=== PATIENT | female | born 1965 | race Caucasian/White ===

== ENCOUNTER → 2017-05-29 | Outpatient (CLI) | payer OTHER ==
[~2017-05-29] MED LIST: ACET325T14 PO; CHOL200024 PO; CIPR500T87 PO; GUAI-42 PO; MELO15TA24 PO; MULTIVITAMIN; NITROFURANTOIN; PHEN100T90 PO; POLY17PO5 PO
== END | disposition home or self-care (01) ==
LOC: MERGE 08:00 → STAR 08:05
PROVIDERS: ATTEND Podiatrist Foot & Ankle Surgery
DX: Z02.9 Encounter for administrative examinations, unspecified (principal)

== ENCOUNTER 2017-06-08 10:51 | Day surgery (SDC) | payer OTHER ==
[~2017-06-08] VITALS: Ht 172.7 cm; Wt 71.1 kg
[2017-06-08] MEDS ORDERED: LIDOCAINE 1%, 2ML ONE (11:29)
[2017-06-08 11:36] VITALS: BP 114/78
[2017-06-08] MEDS ORDERED: MIDAZOLAM 1 MG/ML, 2ML ONE (11:41)
[2017-06-08] MEDS ORDERED: FENTANYL PF 100 MCG/2ML ONE (11:41)
[2017-06-08] MEDS ORDERED: LACTATED RINGERS 1,000 ML IV SCH (12:00)
[2017-06-08] MEDS ORDERED: ONDANSETRON 2MG/ML, 2ML ONE (12:50)
[2017-06-08] MEDS ORDERED: SUCCINYLCHOLINE 20 MG/ML, 10ML ONE (12:50)
[2017-06-08] MEDS ORDERED: DEXAMETHASONE 4 MG/ML, 1ML ONE (12:50)
[2017-06-08] MEDS ORDERED: CEFAZOLIN 1,000 MG ONE (12:50)
[2017-06-08] MEDS ORDERED: PROPOFOL 10 MG/ML, 20ML ONE (12:50)
[2017-06-08] MEDS ORDERED: ROCURONIUM 10 MG/ML ONE (12:50)
[2017-06-08] MEDS ORDERED: LIDOCAINE/PF 1%, 30ML ONE (12:57)
[2017-06-08] MEDS ORDERED: BUPIVACAINE/PF 0.5% ONE (12:57)
[2017-06-08] MEDS ORDERED: TRIAMCINOLONE ACETONIDE 40 MG/ML, 1ML ONE (12:58)
[2017-06-08] MEDS ORDERED: EPINEPHRINE 1 MG/ML, 1ML INFIL ONE (13:24)
[2017-06-08] MEDS ORDERED: DEXAMETHASONE 4 MG/ML, 1ML IM ONE (13:26)
[2017-06-08] MEDS ORDERED: ONDANSETRON 2MG/ML, 2ML IVPush PRN (13:30)
[2017-06-08] MEDS ORDERED: HYDROmorphone 1 MG/ML, 1ML IV PRN (13:30)
[2017-06-08] MEDS ORDERED: LABETALOL 5MG/ML, 20ML IV PRN (13:30)
[2017-06-08] MEDS ORDERED: OXYcodone 5 MG/5 ML ORAL.SOL UDC PO PRN (13:30)
[2017-06-08] MEDS ORDERED: FENTANYL PF 100 MCG/2ML IV PRN (13:30)
[2017-06-08] MEDS ORDERED: ACETAMINOPHEN 325 MG TABLET PO PRN (13:30)
[2017-06-08] MEDS ORDERED: hydrALAzine 20 MG/ML, 1ML IV PRN (13:30)
[2017-06-08] MEDS ORDERED: METOCLOPRAMIDE 5 MG/ML, 2ML IV PRN (13:30)
[2017-06-08] MEDS ORDERED: OXYcodone 5 MG/5 ML ORAL.SOL UDC ONE (14:11)
[2017-06-08] MEDS ORDERED: ACETAMINOPHEN 650 MG/20.3 ML UDC ONE (14:11)
== END 2017-06-08 15:20 | disposition home or self-care (01) ==
LOC: OUT 10:51 → MERGE 13:00 → OUT 15:20
PROVIDERS: ATTEND Podiatrist Foot & Ankle Surgery
DX: T84.84XA Pain due to internal orthopedic prosthetic devices, implants and grafts, initial encounter (principal); Y83.9 Surgical procedure, unspecified as the cause of abnormal reaction of the patient, or of later complication, without mention of misadventure at the time of the procedure
CPT/HCPCS: 20680; J0171; J0330; J0690; J1100; J2250; J2405; J2704; J3010; J3301; J3490; J7120

== ENCOUNTER 2017-12-12 16:46 | Emergency (ER) | payer OTHER ==
[~2017-12-12] VITALS: Ht 172.7 cm; Wt 72.0 kg
[2017-12-12 17:33] LABS: BASOPHILS # (AUTO) 0.04 x10^3/uL (0-0.1); BASOPHILS % (AUTO) 1 % (0-1); EOSINOPHILS # (AUTO) 0.26 x10^3/uL (0-0.4); EOSINOPHILS % (AUTO) 3 % (1-7); LYMPHOCYTES # (AUTO) 2.96 x10^3/uL (1-3.4); LYMPHOCYTES % (AUTO) 38 % (22-44); MD NO; MEAN CORPUSCULAR HEMOGLOBIN 30.3 pg (27.0-34.8); MEAN CORPUSCULAR HGB CONC 33.5 g/dL (32.4-35.8); MEAN CORPUSCULAR VOLUME 90.4 fL (80-100); MEAN PLATELET VOLUME 7.9 fL (7.4-10.4); MONOCYTES # (AUTO) 0.53 x10^3/uL (0.2-0.8); MONOCYTES % (AUTO) 7 % (2-9); NEUTROPHILS # (AUTO) 3.95 x10^3/uL (1.8-6.8); NEUTROPHILS % (AUTO) 51 % (42-75); PLATELET COUNT 309 x10^3/uL (130-400); RED BLOOD COUNT 4.74 x10^6/uL (3.82-5.3); RED CELL DISTRIBUTION WIDTH 12.5 % (9.6-15.2)
[2017-12-12 17:41] LABS: ALANINE AMINOTRANSFERASE 26 U/L (12-78); ALBUMIN 4.2 g/dL (3.4-5.0); ANION GAP 7 mmol/L (5-15); CALCIUM 9.2 mg/dL (8.5-10.1); CHLORIDE 105 mmol/L (98-107); CREATININE 0.87 mg/dL (0.55-1.02)
[2017-12-12 17:42] LABS: MICROSCOPIC NOT IND
[2017-12-12 17:44] LABS: ALKALINE PHOSPHATASE 76 U/L (45-117); BILIRUBIN,TOTAL 0.4 mg/dL (0.2-1.0); TOTAL PROTEIN 7.8 g/dL (6.4-8.2)
[2017-12-12 17:49] LABS: CULTURE INDICATED? NO; HCG UR SG 1.021 (1.003-1.030)
[2017-12-12 19:15] VITALS: BP 111/64
== END 2017-12-12 19:52 | disposition home or self-care (01) ==
LOC: ED 17:48
DX: K29.00 Acute gastritis without bleeding (principal)
CPT/HCPCS: 36415; 74018; 76700; 80053; 81003; 81025; 83690; 85025; 99285

== ENCOUNTER → 2018-09-13 | Outpatient (CLI) | payer OTHER ==
[~2018-09-13] MED LIST changes: +OMNIPAQUE 350 MG/ML, 100ML BOTTLE ONE
== END | disposition home or self-care (01) ==
LOC: RAD 10:24
PROVIDERS: ATTEND Physician Assistant Surgical
DX: N20.0 Calculus of kidney (principal); M54.89 Other dorsalgia
CPT/HCPCS: 74170; Q9967

== ENCOUNTER 2019-03-31 14:18 | Emergency (ER) | payer OTHER ==
[~2019-03-31] VITALS: Ht 172.7 cm; Wt 72.0 kg
[~2019-03-31 14:18] MED LIST changes: -OMNIPAQUE 350 MG/ML, 100ML BOTTLE ONE
[2019-03-31] MEDS ORDERED: ONDANSETRON 2MG/ML, 2ML ONE (15:12)
[2019-03-31] MEDS ORDERED: MORPHINE SULFATE 4 MG/ML, 1ML ONE ×2 (15:13→16:13)
[2019-03-31] MEDS: MORPHINE SULFATE 4 MG/ML, 1ML IVPush PRN ×2 (15:17→16:20)
[2019-03-31 15:21] LABS: BASOPHILS # (AUTO) 0.03 x10^3/uL (0-0.1); BASOPHILS % (AUTO) 0 % (0-1); EOSINOPHILS # (AUTO) 0.15 x10^3/uL (0-0.4); EOSINOPHILS % (AUTO) 2 % (1-7); LYMPHOCYTES # (AUTO) 1.23 x10^3/uL (1-3.4); LYMPHOCYTES % (AUTO) 13 % (22-44); MD NO; MEAN CORPUSCULAR HEMOGLOBIN 30.1 pg (27.0-34.8); MEAN CORPUSCULAR HGB CONC 32.7 g/dL (32.4-35.8); MEAN CORPUSCULAR VOLUME 92.1 fL (80-100); MEAN PLATELET VOLUME 7.6 fL (7.4-10.4); MONOCYTES # (AUTO) 0.34 x10^3/uL (0.2-0.8); MONOCYTES % (AUTO) 4 % (2-9); NEUTROPHILS # (AUTO) 7.65 x10^3/uL (1.8-6.8); NEUTROPHILS % (AUTO) 81 % (42-75); PLATELET COUNT 245 x10^3/uL (130-400); RED BLOOD COUNT 4.86 x10^6/uL (3.82-5.3); RED CELL DISTRIBUTION WIDTH 12.6 % (9.6-15.2)
[2019-03-31] MEDS ORDERED: ONDANSETRON 2MG/ML, 2ML IVPush ONE (15:30)
[2019-03-31 15:34] LABS: ALANINE AMINOTRANSFERASE 39 U/L (12-78); ALBUMIN 4.8 g/dL (3.4-5.0); ANION GAP 10 mmol/L (5-15); CALCIUM 9.4 mg/dL (8.5-10.1); CHLORIDE 105 mmol/L (98-107); CREATININE 0.99 mg/dL (0.55-1.02)
[2019-03-31 15:36] LABS: ALKALINE PHOSPHATASE 77 U/L (45-117); TOTAL PROTEIN 8.2 g/dL (6.4-8.2)
[2019-03-31 15:50] LABS: MICROSCOPIC AUTO
--- NOTE | 2019-03-31 15:51 | NUR ---
PT TO CT
[2019-03-31 15:53] LABS: CULTURE INDICATED? NO
[2019-03-31] MEDS ORDERED: SODIUM CHLORIDE 0.9% 1,000 ML IV ONE (16:00)
[2019-03-31] MEDS ORDERED: OMNIPAQUE 350 MG/ML, 100ML BOTTLE ONE (16:11)
[2019-03-31] MEDS ORDERED: KETOROLAC 30 MG/1 ML ONE (16:18)
[2019-03-31] MEDS ORDERED: KETOROLAC 30 MG/1 ML IVPush ONE (16:30)
--- NOTE | 2019-03-31 16:32 | NUR ---
PT PLACED ON 2LNC FOR LOW O2 SAT AFTER PAIN MEDICATION
--- NOTE | 2019-03-31 16:52 | NUR ---
[place]. OXYGEN TURNED OFF- RA SAT96%. PT TO BE DISCHARGED
[2019-03-31 17:02] VITALS: BP 112/65
== END 2019-03-31 17:05 | disposition home or self-care (01) ==
LOC: ED 14:42
DX: N20.1 Calculus of ureter (principal); R11.2 Nausea with vomiting, unspecified; Z88.0 Allergy status to penicillin; Z90.89 Acquired absence of other organs
CPT/HCPCS: 36415; 74177; 80053; 81001; 83605; 83690; 85025; 96361; 96374; 96375; 96376; 99284; J1885; J2270; J2405; J7030; Q9967